=== PATIENT | male | born 1935 | race Hispanic/Latino ===

== ENCOUNTER 2018-05-02 09:16 | Inpatient (IN) | payer OTHER ==
[2018-05-02] MEDS ORDERED: GLUCAGON 1 MG/VIAL IM PRN (10:22)
[2018-05-02] MEDS ORDERED: D50W 25 GM/50 ML SYRINGE IV PRN (10:22)
[2018-05-02] MEDS: INSULIN -REGULAR HUMAN 50 UNIT/0.5 ML ML SQ SCH ×3 (11:41→21:09)
[2018-05-02] MEDS: NA CHLORIDE 0.9% 1,000 ML IV SCH ×2 (11:42→23:30)
[2018-05-02 12:36] LABS: Urine Appearance CLEAR; Urine Bilirubin NEGATIVE (NEG); Urine Blood 1+ (NEG); Urine Color YELLOW; Urine Glucose 3+ (NEG); Urine Protein NEGATIVE (NEG); Urine Specific Gravity >=1.030 (1.005-1.030); Urine Urobilinogen 0.2 mg/dL (0.2-1.0); Urine pH 5.5 (5.0-7.0)
[2018-05-02 12:39] LABS: Urine Microscopic Reflex ORDER UMIC
[2018-05-02 12:45] LABS: Urine Bacteria NONE SEEN /HPF (NONE SEEN); Urine Culture Reflex Order NOT NEEDED; Urine RBC <5 /HPF (NONE SEEN)
[2018-05-02] MEDS ORDERED: INSULIN -REGULAR HUMAN 50 UNIT/0.5 ML ML IV ONE (16:49)
[2018-05-02] MEDS ORDERED: INSULIN -REGULAR HUMAN 50 UNIT/0.5 ML ML SQ SCH (21:00)
--- NOTE | 2018-05-03 00:27 | HP ---
Date of Admission: 05/02/2018 Chief Complaint: Dehydration, hyperglycemia. History Of Present Illness: An 82-year-old male who was brought to the office because of weakness an d tendency to fall. The patient stopped taking all his diabetes medicine. The patient had outpatien t workup. His blood sugar was found to be 700. I spoke to the the night before admission; cerda alfonzo, they did not want to go to emergency room or seek medical help at that point. He was brought to the office on the day of admission, at which point he was admitted. The patient denied any new symp toms. Past Medical History: Positive for type 2 diabetes and hypertension. Past Medical History: As mentioned earlier is type 2 diabetes, chronic renal insufficiency, and oste oarthritis. Family History: Noncontributory. Personal History: The patient has previous history of smoking. Review of Systems: The patient denied any chest pain or shortness of breath. Physical Examination: General: Revealed elderly male, alert for his age, however. HEENT: No evidence of head injury. Neck: Supple. JVD negative. Chest: Clear. Heart: Regular. Abdomen: Soft. Extremities: No edema. Laboratory Data: Please refer to the chart. His blood sugar was over 700. BUN and creatinine eleva zane. Assessment: 1.Dehydration. 2.Severe hyperglycemia. 3.Noncompliance. Plan: IV normal saline as his sodium is low. He will be put on insulin sliding scale. The patient will be having Chem profile repeated tomorrow. LORI/DAVID Voice ID: [id number]
[2018-05-03] MEDS: INSULIN -REGULAR HUMAN 50 UNIT/0.5 ML ML SQ SCH ×4 (09:21→21:12)
[2018-05-03 09:44] LABS: Potassium 4.8 mmol/L (3.5-5.1)
[2018-05-03 10:30] VITALS: BMI 26.6
[2018-05-03 10:52] VITALS: O2SAT 98
[2018-05-03] MEDS: NA CHLORIDE 0.9% 1,000 ML IV SCH (13:29)
[2018-05-03] MEDS ORDERED: GUAIFENESIN/DM 5 ML UCUP PO PRN (21:35)
[2018-05-04] MEDS: NA CHLORIDE 0.9% 1,000 ML IV SCH ×2 (00:25→03:00)
[2018-05-04] MEDS: INSULIN -REGULAR HUMAN 50 UNIT/0.5 ML ML SQ SCH ×2 (08:10→11:43)
--- NOTE | 2018-05-04 09:34 | RAD REPORT ---
EXAM DESCRIPTION: Lady Garcia (2 Views)05/04/2018 6:59 am CLINICAL HISTORY: Cough COMPARISON: 2009 FINDINGS: The lungs appear clear of acute infiltrate. The heart is normal size IMPRESSION: No acute abnormalities displayed
[2018-05-04 12:05] VITALS: BP 131/63; TEMP 98.6
== END 2018-05-04 12:54 | disposition home or self-care (01) | DRG 640 ==
LOC: 4TH 09:51
PROVIDERS: ADMIT Internal Medicine; ATTEND Internal Medicine
DX: E86.0 Dehydration (principal); E11.00 Type 2 diabetes mellitus with hyperosmolarity without nonketotic hyperglycemic-hyperosmolar coma (NKHHC); Z91.128 Patient's intentional underdosing of medication regimen for other reason; I10 Essential (primary) hypertension; Z79.84 Long term (current) use of oral hypoglycemic drugs; M19.90 Unspecified osteoarthritis, unspecified site; Z87.891 Personal history of nicotine dependence
CPT/HCPCS: 36415; 71046; 80048; 81003; 81015; 82947; 82962; 87086; 87088; J7030

== ENCOUNTER 2021-03-19 18:26 | Inpatient (IN) | payer OTHER ==
--- OUTSIDE RECORDS SUMMARY | 2021-03-19 18:28 | XMS REPORT | Continuity of Care Document ---
:1935 Author Organization [facility] t Address [address] [place] [address] Care Team Providers Name Role Phone Unavailable Unavailable Unavailable Problems Condition Condition Condition Status Onset Resolution Last Treating Co mments Source Name Details Category Date Date Treatment Clinician Date Gout Gout Problem Active [place] 4-14 Family 00:00: Practic 00 e Senile Senile Problem Active [facility] purpura Purpura 4-14 Family 00:00: Practic 00 e Arthritis Arthritis Problem Active Ralph dixone 1-15 Family 00:00: Practic 00 e Complicati Complicati Problem Active [place] on due to on Due to 08-09 Fami ly diabetes Diabetes 00:00: Practi c mellitus Mellitus 00 e Hypertensi Hypertensi Problem Active [place] [facility] ve ve 11 Family disorder Disorder 00:00: Practi c 00 e Long-term Long-term Problem Active Ralph bruce current Current 11 Family use of Use of 00:00: Practic insulin Insulin 00 e Allergies, Adverse Reactions, Alerts This patient has no known allergies or adverse reactions. Social History Smoking Status Start Date Stop Date Source Former Smoker [facility] Family P thomas Medications Ordered Filled Start Stop Current Ordering Indication Dosage Frequency Signature Comments Components Source Medication Medication Date Date Medication? Clinician (SIG) Name Name Goran Zimmer No 10unit( Q1D Goran [facility] KwTreva KwikPen s) [facility] Family U-100 U-100 U-100 Practic Insulin 100 Insulin 100 Insulin e unit/mL (3 unit/mL (3 100 mL) mL) unit/mL (3 subcutaneou subcutaneou mL) s Inject 10 s Inject 10 subcutaneo units every units every us Inject day by day by 10 units subcutaneou subcutaneou every day s route. s route. by subcutaneo us route. glimepiride glimepiride No 1 Q1D glimepirid [facility] 2 mg tablet 2 mg tablet e 2 mg Family Take 1 Take 1 tablet Practic tablet tablet Take 1 e every day every day tablet by oral by oral every day route. route. by oral route. losartan 50 losartan 50 No 1 Q1D losartan [place] mg tablet mg tablet 50 mg Fami ly Take 1 Take 1 tablet Practic tablet tablet Take 1 e every day every day tablet by oral by oral every day route. route. by oral route. metformin metformin No 1 Q1D metformin [facility] 500 mg 500 mg 500 mg Family tablet Take tablet Take tablet Practic 1 tablet 1 tablet Take 1 e every day every day tablet by oral by oral every day route. route. by oral route. Vital Signs Vital Name Observation Time Observation Value Comments Source BP Diastolic 2020-11-10 00:00:00 87 mm[Hg] [facility] Height 2020-11-10 00:00:00 64 [in_i] [facility] BMI (Body Mass 2020-11-10 00:00:00 28 kg/m2 [facility] Family Index) Practice BP Systolic 2020-11-10 00:00:00 143 mm[Hg] [facility] Body Weight 2020-11-10 00:00:00 163 [lb_av] [facility] BP Diastolic 2020-08-09 00:00:00 65 mm[Hg] [facility] Height 2020-08-09 00:00:00 64 [in_i] [facility] BMI (Body Mass 2020-08-09 00:00:00 27.8 kg/m2 [facility] Family Index) Practice BP Systolic 2020-08-09 00:00:00 130 mm[Hg] [facility] Body Weight 2020-08-09 00:00:00 162 [lb_av] [facility] Procedures This patient has no known procedures. Plan of Care Planned Activity Planned Date Details Comments Source Instructions [facility] Encounters Start End Encounter Admission Attending Care Care Encounter Source Date/Time Date/Time Type Type Clinicians Facility Department ID 2020-11-10 2020-11-10 [facility] [place] - [id number] [place] [facility] 00:00:00 00:00:00 Fawad Hurley [employer] [employer] ADJUSTER: [id number]ishabh Teran, [email or web address] [address], [facility] [id number] , Ph. 2020-08-09 2020-08-09 [facility] - [id number] [place] 00:00:00 00:00:00 Fawad Hurley [employer] PRESS ADJUSTER: [id number] [facility] - Pract rishabh Teran [email or web address] Suite [facility], [facility] [id number] , Ph. Results This patient has no known results.
[2021-03-19 18:39] LABS: Urine Blood 2+ (Negative); Urine Glucose Negative (Negative); Urine Protein 3+ (Negative); Urine pH 5.5 (5.0-7.0)
[2021-03-19] MEDS ORDERED: ACETAMINOPHEN 500 MG TAB ONE (19:00)
[2021-03-19 19:11] LABS: Absolute Lymphocytes (CBC) 0.6 K/uL (0.7-4.9); Basophils % 0.2 % (0-1.3); Hematocrit 40.1 % (39.6-49.0); MPV 8.1 fL (7.6-11.3); RBC Red Blood Cell Count 4.35 M/uL (4.33-5.43)
[2021-03-19] MEDS ORDERED: D50W 50 ML IV ONE (19:13)
[2021-03-19] MEDS ORDERED: NA CHLORIDE 0.9% 1,000 ML ONE (19:13)
--- NOTE | 2021-03-19 19:22 | EDPHYS ---
Physician Documentation [facility] Name: Sal Horta Age: 85 yrs Sex: Male : 1935 Arrival Date: 03/19/2021 Time: 18:28 Bed 7 Private MD: ED Physician Monico Carey HPI: 03/19 19:06 This 85 yrs old Male presents to ER via EMS with complaints of Shortness Of hunter Breath, Fever. 19:06 The patient has shortness of breath at rest. Onset: The symptoms/episode began/occurred hunter 2 day(s) ago. Duration: The symptoms are continuous, and are steadily getting worse. The patient's shortness of breath is aggravated by nothing, is alleviated by application of supplemental oxygen. Associated signs and symptoms: Pertinent positives: non-productive cough, fever. Severity of symptoms: At their worst the symptoms were mild in the emergency department the symptoms are unchanged. It is unknown whether or not the patient has had similar symptoms in the past. Historical: - Allergies: 18:30 tetanus toxoid, adsorbed; hb - PMHx: 18:30 HTN; hb - Immunization history:: Adult Immunizations up to date, Adult Immunizations. - Social history:: Smoking status: unknown. - Family history:: not pertinent. ROS: 19:06 Eyes: Negative for injury, pain, redness, and discharge, ENT: Negative for injury, hunter pain, and discharge, Neck: Negative for injury, pain, and swelling, Abdomen/GI: Negative for abdominal pain, nausea, vomiting, diarrhea, and constipation, Back: Negative for injury and pain, : Negative for injury, bleeding, discharge, and swelling, MS/Extremity: Negative for injury and deformity, Skin: Negative for injury, rash, and discoloration, Psych: Negative for depression, anxiety, suicide ideation, homicidal ideation, and hallucinations, Allergy/Immunology: Negative for hives, rash, and allergies, Endocrine: Negative for neck swelling, polydipsia, polyuria, polyphagia, and marked weight changes. 19:06 Cardiovascular: Positive for chest pain. 19:06 Respiratory: Positive for cough, shortness of breath, at rest. Exam: 19:06 Head/Face: Normocephalic, atraumatic. Eyes: Pupils equal round and reactive to light, hunter extra-ocular motions intact. Lids and lashes normal. Conjunctiva and sclera are non-icteric and not injected. Cornea within normal limits. Periorbital areas with no swelling, redness, or edema. ENT: Nares patent. No nasal discharge, no septal abnormalities noted. Tympanic membranes are normal and external auditory canals are clear. Oropharynx with no redness, swelling, or masses, exudates, or evidence of obstruction, uvula midline. Mucous membranes moist. Neck: Trachea midline, no thyromegaly or masses palpated, and no cervical lymphadenopathy. Supple, full range of motion without nuchal rigidity, or vertebral point tenderness. No Meningismus. Chest/axilla: Normal chest wall appearance and motion. Nontender with no deformity. No lesions are appreciated. Abdomen/GI: Soft, non-tender, with normal bowel sounds. No distension or tympany. No guarding or rebound. No evidence of tenderness throughout. Back: No spinal tenderness. No costovertebral tenderness. Full range of motion. Male : Normal genitalia with no discharge or lesions. Skin: Warm, dry with normal turgor. Normal color with no rashes, no lesions, and no evidence of cellulitis. MS/ Extremity: Pulses equal, no cyanosis. Neurovascular intact. Full, normal range of motion. Neuro: Awake and alert, GCS 15, oriented to person, place, time, and situation. Cranial nerves II-XII grossly intact. Motor strength 5/5 in all extremities. Sensory grossly intact. Cerebellar exam normal. Normal gait. Psych: Awake, alert, with orientation to person, place and time. Behavior, mood, and affect are within normal limits. 19:06 Constitutional: The patient appears febrile. 19:06 Cardiovascular: Rate: tachycardic, actual rate is 131 bpm, Rhythm: regular, Pulses: Pulses are 4+ in bilateral radial, brachial, femoral, popliteal, posterior tibial and and dorsalis pedis arteries.. Heart sounds: normal, Edema: is not appreciated, JVD: is not appreciated. 19:06 ECG was reviewed by the Attending Physician. Vital Signs: 18:28 BP 145 / 94; Pulse 131; Resp 40; Temp 101; Pulse Ox 93% on 15% Non-rebreather mask; hb Pain 5/10; 18:55 Weight 64.41 kg; Height 5 ft. 4 in. (162.56 cm); hb 20:00 BP 130 / 50; Pulse 96; Resp 26; Temp 99(O); Pulse Ox 92% on 5 lpm NC; Pain 0/10; lp1 21:00 BP 128 / 81; Pulse 89; Resp 28; Pulse Ox 92% on 5 lpm NC; lp1 18:55 Body Mass Index 24.37 (64.41 kg, 162.56 cm) hb MDM: 18:44 Patient medically screened. hunter 19:16 Differential diagnosis: asthma, Bronchitis Chronic Obstructive Pulmonary Disease hunter reactive airway disease, Sepsis. Antibiotic administration: zosyn . The patient's Wells Deep Vein Thrombosis Score was calculated as follows: Total Score: 0-2 Pts- Low Risk. The patient's pulmonary embolism risk score was calculated as follows: Total Score: 0-2 points. This patient was found to be at low risk for a pulmonary embolism by using the Well's assessment criteria. Immunization status: Pneumococcal vaccine: Influenza vaccine: Data reviewed: vital signs, nurses notes, EMS record, EKG, radiologic studies, plain films. Data interpreted: secured entrance monitor: rate is 131 beats/min, rhythm is regular, Pulse oximetry: on room air is 93 %. Test interpretation: by ED physician or midlevel provider: ECG, plain radiologic studies. Counseling: I had a detailed discussion with the patient and/or guardian regarding: the historical points, exam findings, and any diagnostic results supporting the discharge/admit diagnosis, lab results, radiology results, the need for further work-up and treatment in the hospital. 03/19 18:33 Order name: Basic Metabolic Panel hb 03/19 18:33 Order name: CBC with Diff hb 03/19 18:33 Order name: LFT's hb 03/19 18:33 Order name: Magnesium hb 03/19 18:33 Order name: NT PRO-BNP hb 03/19 18:33 Order name: PT-INR hb 03/19 18:33 Order name: Troponin (emerg Dept Use Only) hb 03/19 18:33 Order name: COVID-19 : Document "Date of Symptom Onset" if Symptomatic. hb 03/19 18:33 Order name: Blood Culture Adult (2) hb 03/19 18:33 Order name: Lactate hb 03/19 18:33 Order name: Procalcitonin; Complete Time: 20:22 hb 03/19 18:34 Order name: Basic Metabolic Panel; Complete Time: 08:46 EDMS 03/19 18:34 Order name: CBC with Automated Diff; Complete Time: 19:22 EDMS 03/19 18:34 Order name: Liver (Hepatic) Function; Complete Time: 08:46 EDMS 03/19 18:34 Order name: Magnesium; Complete Time: 08:46 EDMS 03/19 18:34 Order name: NT PRO-BNP; Complete Time: 08:46 EDMS 03/19 18:34 Order name: Protime (+INR); Complete Time: 20:22 EDMS 03/19 18:34 Order name: Troponin (Emerg Dept Use Only); Complete Time: 08:46 EDMS 03/19 18:34 Order name: CRP; Complete Time: 08:46 la1 03/19 18:34 Order name: Ferritin; Complete Time: 08:46 la1 03/19 18:34 Order name: DD; Complete Time: 20:22 la1 03/19 18:38 Order name: Urine Dipstick-Ancillary; Complete Time: 19:05 EDMS 03/19 18:58 Order name: Glucose, Ancillary Testing; Complete Time: 19:05 EDMS 03/19 20:45 Order name: COVID-19/FLU A+B; Complete Time: 20:51 EDMS 03/19 22:55 Order name: Glucose, Ancillary Testing; Complete Time: 08:46 EDMS 03/20 08:06 Order name: Glucose, Ancillary Testing; Complete Time: 08:46 EDMS 03/20 08:16 Order name: Hemoglobin A1c; Complete Time: 08:46 EDMS 03/20 08:25 Order name: D-Dimer; Complete Time: 08:46 EDMS 03/19 18:33 Order name: XRAY Chest (1 view); Complete Time: 20:22 hb 03/19 18:33 Order name: EKG; Complete Time: 18:34 hb 03/19 18:33 Order name: Cardiac monitoring; Complete Time: 18:47 hb 03/19 18:33 Order name: EKG - Nurse/Tech; Complete Time: 18:47 hb 03/19 18:33 Order name: IV Saline Lock; Complete Time: 18:47 hb 03/19 18:33 Order name: Labs collected and sent; Complete Time: 18:47 hb 03/19 18:33 Order name: O2 Per Protocol; Complete Time: 18:47 hb 03/19 18:33 Order name: O2 Sat Monitoring; Complete Time: 18:47 hb 03/19 22:14 Order name: US; Complete Time: 08:46 EDMS 03/20 08:26 Order name: CBC with Automated Diff EDMS 03/20 08:46 Order name: Comprehensive Metabolic Panel; Complete Time: 08:46 EDMS 03/20 08:46 Order name: Uric Acid; Complete Time: 08:46 EDMS 03/20 08:46 Order name: Creatine Phosphokinase; Complete Time: 08:46 EDMS 03/20 08:46 Order name: Lipid Profile; Complete Time: 08:46 EDMS 03/20 08:46 Order name: C-Reactive Protein; Complete Time: 08:46 EDMS 03/20 08:46 Order name: T4 Free; Complete Time: 08:46 EDMS 03/20 08:46 Order name: Magnesium; Complete Time: 08:46 EDMS 03/20 08:46 Order name: Thyroid Stimulating Hormone; Complete Time: 08:46 EDMS 03/20 08:46 Order name: Ferritin; Complete Time: 08:46 EDMS 03/20 10:29 Order name: CBC Smear Scan EDMS 03/20 12:39 Order name: Glucose, Ancillary Testing EDMS 03/20 16:40 Order name: Glucose, Ancillary Testing EDMS EC:06 Rate is 131 beats/min. Rhythm is regular. QRS [place] is Normal. AR interval is normal. hunter QRS interval is normal. QT interval is normal. No Q waves. T waves are Normal. No ST changes noted. Clinical impression: NSR w/ Non-specific ST/T Changes and No evidence of ischemia. Interpreted by me. Reviewed by me. Administered Medications: 18:47 Drug: Tylenol 650 mg Route: PO; hb 20:14 Follow up: Response: Temperature is decreased lp1 18:54 Drug: D50W 50 ml Route: IVP; Site: left antecubital; hb 20:15 Follow up: Response: No adverse reaction lp1 18:55 Drug: NS 0.9% (30 ml/kg) 30 ml/kg Route: IV; Rate: bolus; Site: left antecubital; hb 20:59 Follow up: IV Status: Completed infusion; IV Intake: 1933ml lp1 20:14 Drug: Zosyn (piperacillin-tazobactam) 3.375 grams Route: IVPB; Infused Over: 60 mins; lp1 Site: left forearm; 20:50 Follow up: IV Status: Completed infusion; IV Intake: 100ml lp1 20:14 Drug: Pepcid (famotidine) 20 mg Route: IVP; Site: left forearm; lp1 20:59 Follow up: Response: No adverse reaction lp1 21:15 Drug: SOLU-Medrol (methylPrednisoLONE) 125 mg Route: IVP; Site: left forearm; lp1 22:00 Follow up: Response: No adverse reaction lp1 03/20 00:30 Not Given (See [facility] charting ): D5W 1000 ml IV at 75 ml/hr continuous lp1 Point of Care Testing: Blood Glucose: 03/19 18:47 Blood Glucose: 61 mg/dL; hb Ranges: Critical Glucose Levels:Adult <50 mg/dl or >400 mg/dl <40 mg/dl or >180 mg/dl Disposition Summary: 03/19/21 19:21 Hospitalization Ordered Hospitalization Status: Inpatient Admission hunter Provider: Tiffanie Lee cha Condition: Fair hunter Problem: new hunter Symptoms: have improved hunter Bed/Room Type: Standard hunter Location: Telemetry/MedSurg (Inpatient)(03/20/21 19:03) cg Room Assignment: [facility](03/20/21 19:03) Diagnosis - Fever, unspecified hunter - Hypoglycemia, unspecified hunter - Hypoxemia hunter - Weakness hunter - Acute kidney failure, unspecified - on chronic hunter Forms: - Medication Reconciliation Form hunter - SBAR form hunter Signatures: Dispatcher [employer] EDMS Monico Carey MD MD cha Pena, Laura, RN RN lp1 Kraig Sparks, [facility] Audelia Minor RN RN Katlin Hilario RN RN hb Corrections: (The following items were deleted from the chart) 19:03 18:34 CORONAVIRUS ordered. EDWV EDMS 19:50 19:02 Influenza Screen (A \\T\\ B)+BA.LAB.BRZ ordered. EDWV EDMS 21:39 19:21 Telemetry/MedSurg (Inpatient) [facility] 21:39 19:21 [facility] 03/20 19:03 03/19 21:39 BR ER HOLD [facility] 08/22 19:03 08 21:39 ERHOLD- cg
--- NOTE | 2021-03-19 19:22 | ER ---
Nurse's Notes [facility] [place] [place] Name: Sal Horta Age: 85 yrs Sex: Male : 1935 Arrival Date: 03/19/2021 Time: 18:28 Bed 7 Private MD: Diagnosis: Fever, unspecified;Hypoglycemia, unspecified;Hypoxemia;Weakness;Acute kidney failure, unspecified-on chronic Presentation: 03/19 18:28 Chief complaint: EMS states: SOB, cough, and fever x 3 days. SpO2 72% on RA, T101. NS hb to 22g LAC. Coronavirus screen: Client presents with at least one sign or symptom that may indicate coronavirus-19. Standard/surgical mask placed on the client. Provider contacted for isolation considerations. Ebola Screen: No symptoms or risks identified at this time. Initial Sepsis Screen: Does the patient meet any 2 criteria? Yes Does the patient have a suspected source of infection? No. Patient's initial sepsis screen is negative. Risk Assessment: Do you want to hurt yourself or someone else? Patient reports no desire to harm self or others. Onset of symptoms was March 16, 2021. 18:28 Method Of Arrival: EMS: [facility] hb 18:28 Acuity: CHUCK 2 hb Triage Assessment: 18:30 General: Appears distressed, Behavior is cooperative. Pain: Pain currently is 5 out of hb 10 on a pain scale. EENT: No signs and/or symptoms were reported regarding the EENT system. Neuro: Level of Consciousness is awake, alert, obeys commands, Oriented to person, place, situation. Cardiovascular: Patient's skin is warm and dry. Rhythm is sinus tachycardia. Respiratory: Reports shortness of breath at rest on exertion cough that is productive, Airway is patent Respiratory effort is labored, Respiratory pattern is tachypnea the patient has moderate shortness of breath. GI: No signs and/or symptoms were reported involving the gastrointestinal system. : No signs and/or symptoms were reported regarding the genitourinary system. Derm: Skin is pink, warm \\T\\ dry. Musculoskeletal: No signs and/or symptoms reported regarding the musculoskeletal system. Historical: - Allergies: 18:30 tetanus toxoid, adsorbed; hb - PMHx: 18:30 HTN; hb - Immunization history:: Adult Immunizations up to date, Adult Immunizations. - Social history:: Smoking status: unknown. - Family history:: not pertinent. Screenin:31 Abuse screen: Denies threats or abuse. Denies injuries from another. Nutritional hb screening: No deficits noted. Tuberculosis screening: No symptoms or risk factors identified. Fall Risk Total Willis Fall Scale indicates Low Risk Score (25-44 pts). Fall prevention measures have been instituted. Side Rails Up X 2 Frequent Obs/Assesments occuring As available Patient and Family Educated on Fall Prevention Program and strategies. Assessment: 18:31 General: see triage assessment . hb 20:00 General: Appears in no apparent distress. Behavior is calm, cooperative. Pain: Denies lp1 pain. Neuro: Level of Consciousness is awake, alert, obeys commands, Oriented to person, place, situation. Cardiovascular: Patient's skin is warm and dry. Respiratory: Respiratory effort is even, shallow, Breath sounds are diminished in left posterior lower lobe and right posterior lower lobe. GI: No signs and/or symptoms were reported involving the gastrointestinal system. : No signs and/or symptoms were reported regarding the genitourinary system. EENT: No signs and/or symptoms were reported regarding the EENT system. Derm: Skin is fragile, is thin, Skin is dry, Skin is normal. Musculoskeletal: No deficits noted. 03/20 20:11 Reassessment: Patient and/or family updated on plan of care and expected duration. Pain jb4 level reassessed. Pt admitted to fourth floor report given to receiving nurse on fourth. Pt left ED in hospital bed with O2 per non rebreather, tolerating well. Vital Signs: 08 18:28 BP 145 / 94; Pulse 131; Resp 40; Temp 101; Pulse Ox 93% on 15% Non-rebreather mask; hb Pain 5/10; 18:55 Weight 64.41 kg; Height 5 ft. 4 in. (162.56 cm); hb 20:00 BP 130 / 50; Pulse 96; Resp 26; Temp 99(O); Pulse Ox 92% on 5 lpm NC; Pain 0/10; lp1 21:00 BP 128 / 81; Pulse 89; Resp 28; Pulse Ox 92% on 5 lpm NC; lp1 18:55 Body Mass Index 24.37 (64.41 kg, 162.56 cm) hb ED Course: 18:28 Patient arrived in ED. hb 18:30 Triage completed. hb 18:31 Arm band placed on. hb 18:31 Patient has correct armband on for positive identification. Bed in low position. Call hb light in reach. Side rails up X 1. ekg monitor on. Pulse ox on. NIBP on. 18:31 Maintain EMS IV. Dressing intact. Good blood return noted. Site clean \\T\\ dry. Gauge \\T\\ hb site: 22LAC. 18:44 Monico Carey MD is Attending Physician. hunter 18:56 COVID-19 : Document "Date of Symptom Onset" if Symptomatic. Sent. hb 19:20 Mari Murillo, GIANFRANCO is Primary Nurse. lp1 19:20 Tiffanie Lee MD is Hospitalizing Provider. [facility] 19:57 XRAY Chest (1 view) In Process Unspecified. EDMS 20:00 Inserted saline lock: 20 gauge in left forearm, using aseptic technique. lp1 20:22 No provider procedures requiring assistance completed. Patient admitted, IV remains in lp1 place. Administered Medications: 18:47 Drug: Tylenol 650 mg Route: PO; hb 20:14 Follow up: Response: Temperature is decreased lp1 18:54 Drug: D50W 50 ml Route: IVP; Site: left antecubital; hb 20:15 Follow up: Response: No adverse reaction lp1 18:55 Drug: NS 0.9% (30 ml/kg) 30 ml/kg Route: IV; Rate: bolus; Site: left antecubital; hb 20:59 Follow up: IV Status: Completed infusion; IV Intake: 1933ml lp1 20:14 Drug: Zosyn (piperacillin-tazobactam) 3.375 grams Route: IVPB; Infused Over: 60 mins; lp1 Site: left forearm; 20:50 Follow up: IV Status: Completed infusion; IV Intake: 100ml lp1 20:14 Drug: Pepcid (famotidine) 20 mg Route: IVP; Site: left forearm; lp1 20:59 Follow up: Response: No adverse reaction lp1 21:15 Drug: SOLU-Medrol (methylPrednisoLONE) 125 mg Route: IVP; Site: left forearm; lp1 22:00 Follow up: Response: No adverse reaction lp1 03/20 00:30 [facility] D5W 1000 ml IV at 75 ml/hr continuous lp1 Point of Care Testing: Blood Glucose: 03/19 18:47 Blood Glucose: 61 mg/dL; hb Ranges: Intake: 20:50 IV: 100ml; Total: 100ml. lp1 20:59 IV: 1933ml; Total: 2033ml. lp1 Outcome: 19:21 Decision to Hospitalize by Provider. [facility] 20:23 Condition: stable lp1 20:23 Instructed on the need for admit. 21:20 Admitted to ER Hold. Please see [facility] for further documentation. lp1 03/20 20:12 Patient left the ED. jb4 Signatures: Dispatcher [employer] EDMonico Diaz MD MD cha Pena, Laura, RN RN lp1 Katlin Hilario, GIANFRANCO RN Rashard Majano, GIANFRANCO RN jb4
[2021-03-19 19:37] LABS: Protime INR 1.17
--- NOTE | 2021-03-19 20:06 | RAD REPORT ---
EXAM DESCRIPTION: Lady Single View03/19/2021 7:56 pm CLINICAL HISTORY: cough COMPARISON: 2018 FINDINGS: Moderate bilateral pulmonary opacities The heart is normal size IMPRESSION: Moderate bilateral pulmonary opacities probably pneumonia
[2021-03-19] MEDS ORDERED: FAMOTIDINE 20 MG/2 ML VIAL IV ONE (20:25)
[2021-03-19] MEDS ORDERED: PIPER/TAZO/NS 3.375gm 3.375 GM/100 ML BAG ONE (20:25)
[2021-03-19 20:30] LABS: AST/SGOT 96 U/L (15-37); BUN Blood Urea Nitrogen 42 mg/dL (7-18); Bicarbonate 25 mmol/L (21-32); Glucose Level 78 mg/dL (74-106); Potassium 4.1 mmol/L (3.5-5.1); Sodium Level 144 mmol/L (136-145)
[2021-03-19 20:31] LABS: ALT/SGPT 47 U/L (12-78); Alkaline Phosphatase 59 U/L (45-117); Bilirubin Total 0.5 mg/dL (0.2-1.0)
[2021-03-19 20:32] LABS: Albumin 2.8 g/dL (3.4-5.0); Bilirubin Direct 0.2 mg/dL (0-0.2); C-Reactive Protein > 190.00 mg/L (<3.00); Magnesium 2.2 mg/dL (1.8-2.4); NT PRO-BNP 526 pg/mL (<450); Protein, Total 8.2 g/dL (6.4-8.2); Troponin (Emerg Dept Use Only) 0.02 ng/mL (0.0-0.045)
[2021-03-19 20:45] LABS: SARS-COV-2 RT PCR POSITIVE (NEGATIVE)
--- NOTE | 2021-03-19 20:57 | P.HP ---
Certification for Inpatient Patient admitted to: Inpatient With expected LOS: >2 Midnights Patient will require the following post-hospital care: None Practitioner: I am a practitioner with admitting privileges, knowledge of patient current condition, hospital course, and medical plan of care. Services: Services provided to patient in accordance with Admission requirements found in Title 42 Section 412.3 of the Code of Federal Regulations <Kraig Sparks - Last Filed: 03/19/21 21:32> Patient History Date of Service: 03/19/21 Reason for admission: COVID-19 pneumonia, acute renal failure History of Present Illness: 85-year-old male with history of hypertension, diabetes mellitus type 2, medical noncompliance presents emergency department for shortness of breath and fever. Patient reports shortness breath and fever over the course of the last few days. Patient very poor historian, patient unable to tell me if he is vaccinated or not, not sure if he is ever tested positive for Covid before. Patient noted to be hypoxic to 70% on room air. Further evaluation demonstrates labs significant for D-dimer 821 chloride 112 creatinine 2.09 GFR 30 CRP greater than 190 procalcitonin 0.99 glucose 78 last GFR was 49 in 2018 urinalysis with 3+ protein 2+ blood Covid positive chest x-ray with moderate bilateral pneumonia. Patient informed that he needs to be admitted for hypoxia, COVID-19 pneumonia initially wanted to leave AMA but reluctantly agreed to stay for "1 night". Will admit for further evaluation and management of acute renal failure, COVID-19 pneumonia - Past Medical/Surgical History Diabetic: Yes -: DM -: HTN Past Surgical History: Unable to obtain Psychosocial/ Personal History: Retired lives with family at home - Family History Mother -: Diabetes, Kidney disease - Social History Smoking Status: Never smoker Alcohol use: No CD- Drugs: No Caffeine use: Yes Place of Residence: Home <Kraig Sparks - Last Filed: 03/19/21 21:32> Date of Service: 03/19/21 <Tiffanie Lee - Last Filed: 03/24/21 08:07> Allergies tetanus toxoid, adsorbed Allergy (Intermediate, Verified 07/04/12 12:53) Rash Home Medications: Glimepiride [Amaryl] 2 mg PO DAILY #90 tab 05/04/18 Losartan Potassium [Cozaar] 50 mg PO DAILY #90 tablet 05/04/18 Metformin ER [Glucophage ER] 500 mg PO DAILY 03/20/21 Review of Systems 10-point ROS is otherwise unremarkable General: Fever, Chills, Weakness, Malaise Respiratory: Cough, Dry, Shortness of Breath <Kraig Sparks - Last Filed: 03/19/21 21:32> Physical Examination - Physical Exam General: Alert, In no apparent distress, Oriented x2 HEENT: Atraumatic, PERRLA, Mucous membr. moist/pink, EOMI, Sclerae nonicteric Neck: Supple, 2+ carotid pulse no bruit, No LAD, Without JVD or thyroid abnormality Respiratory: Diminished, Other (Tachypnea, dyspnea) Cardiovascular: Regular rate/rhythm, Normal S1 S2 Gastrointestinal: Normal bowel sounds, No tenderness Musculoskeletal: No tenderness Integumentary: No rashes Neurological: Normal gait, Normal speech, Normal strength at 5/5 x4 extr, Normal tone, Normal affect Lymphatics: No axilla or inguinal lymphadenopathy - Studies Laboratory Data (last 24 hrs) 03/19/21 18:40: PT 13.5 H, INR 1.17 03/19/21 18:40: WBC 8.30, Hgb 13.5 L, Hct 40.1, Plt Count 200 03/19/21 18:40: Sodium 144, Potassium 4.1, BUN 42 H, Creatinine 2.09 H, Glucose 78, Magnesium 2.2, Total Bilirubin 0.5, AST 96 H, ALT 47, Alkaline Phosphatase 59 <Kraig Sparks - Last Filed: 03/19/21 21:32> Assessment and Plan - Plan Assessment: Acute hypoxic respiratory failure secondary to COVID-19 pneumonia Acute kidney injury superimposed on CKD 3 Diabetes mellitus type 2 with hypoglycemia Hypertension Plan: Acute hypoxic respiratory failure secondary to COVID-19 pneumonia: Continue with IV steroids, oral supplements, ivermectin, baricitinib, full anticoagulation with Eliquis 2.5 mg p.o. twice daily given renal function and age, daily room air saturations, respiratory consult, pulmonology consult. Supplemental oxygen as needed. Patient likely with underlying dementia, oriented x2. Discussed case with patient's daughter who confirmed that patient is not in great decision-making capacity, at this time patient is full code, daughter to discuss with rest of family regarding end-of-life wishes including whether patient would like to be placed on ventilator if needed. Acute kidney injury superimposed on CKD 3: Continue with IV fluids D5W given sodium/blood sugar levels, consult nephrology, renal ultrasound. Diabetes mellitus type 2 with hypoglycemia: Continue with D5W, mild sliding scale ACH S Accu-Cheks A1c with morning labs Hypertension: Evaluate medications continue as appropriate. DVT PPX: Eliquis Code status: Full, daughter to discuss with rest of family regarding advanced d irectives including if patient would be okay with being on ventilator or prefers DNI. Discharge Plan: Home Plan to discharge in: Greater than 2 days - Advance Directives Does patient have a Living Will: No Does patient have a Durable POA for Healthcare: No - Code Status/Comfort Care Code Status Assessed: Yes (Full code) Critical Care: No Time Spent Managing Pts Care (In Minutes): 55 <Kraig Sparks - Last Filed: 03/19/21 21:32> - Problems (Diagnosis) (1) Pneumonia due to COVID-19 virus Current Visit: Yes Status: Acute (2) Hypoxemia Current Visit: Yes Status: Acute (3) STEPH (acute kidney injury) Current Visit: Yes Status: Acute <Tiffanie Lee - Last Filed: 03/24/21 08:07> Date of Service: 03/19/21 Subjective Agree with plan of care as mentioned above. Patient is tachypneic and very weak. Will discuss with family regarding code status. Review of Systems 10-point ROS is otherwise unremarkable Physical Examination - Vital Signs Reviewed - Physical Exam General: Alert, In no apparent distress, Oriented x3 Respiratory: Diminished Cardiovascular: Regular rate/rhythm, Normal S1 S2, No murmurs Gastrointestinal: Normal bowel sounds, Soft and benign, Non-distended, No tenderness Musculoskeletal: No clubbing, No swelling, No tenderness Neurological: Sensation intact, Cranial nerves 3-12 intact - Studies Medications List Reviewed: Yes Assessment & Plan - Problems (Diagnosis) (1) Pneumonia due to COVID-19 virus Current Visit: Yes Status: Acute (2) Hypoxemia Current Visit: Yes Status: Acute (3) STEPH (acute kidney injury) Current Visit: Yes Status: Acute - Plan Continue with plan of care as mentioned below: 1. Continue with IV steroids 2. Monitor inflammatory markers 3. Repeat chest x-ray 4. O2 per protocol 5. Nephrology consultation 6. Continue with albuterol inhaler therapy; also supportive care 7. Monitor renal function closely 8. GI and DVT prophylaxis - Advance Directives Does patient have a Living Will: No Does patient have a Durable POA for Healthcare: No <Tiffanie Lee - Last Filed: 03/24/21 08:07>
[2021-03-19 21:09] LABS: Ferritin 3615.7 ng/mL (26-388)
[2021-03-19] MEDS ORDERED: ACETAMINOPHEN 500 MG TAB PO PRN (21:23)
[2021-03-19] MEDS: ASCORBIC ACID 500 MG TABLET PO SCH (21:23)
[2021-03-19] MEDS: METHYLPREDNISOLONE 40 MG INJ IV SCH (21:23)
[2021-03-19] MEDS ORDERED: BENZONATATE 100 MG CAP PO PRN (21:23)
[2021-03-19] MEDS: INSULIN -REGULAR HUMAN 50 UNIT/0.5 ML ML SQ SCH (21:23)
[2021-03-19] MEDS ORDERED: ONDANSETRON 4 MG/2 ML VIAL IV PRN (21:23)
[2021-03-19] MEDS: APIXABAN 5 MG TABLET PO SCH (21:23)
[2021-03-19] MEDS ORDERED: METHYLPREDNISOLONE 125 MG INJ ONE (21:34)
--- NOTE | 2021-03-19 22:13 | RAD REPORT ---
EXAM DESCRIPTION: US - Renal Ultrasound-Complete - 03/19/2021 10:01 pm CLINICAL HISTORY: Acute renal insufficiency COMPARISON: None. FINDINGS: The right kidney measures 10 cm with an increased echotexture. 3.2 centimeter cyst The left kidney measures 9 cm with an increased echotexture. 1.5 centimeters cyst Hydronephrosis is not seen. No gross abnormality of bladder is seen IMPRESSION: Increased renal echotexture consistent with parenchymal disease
[2021-03-19] MEDS ORDERED: APIXABAN 5 MG TABLET ONE (22:47)
[2021-03-19] MEDS ORDERED: ASCORBIC ACID 500 MG TABLET ONE (22:47)
[2021-03-19 23:44] VITALS: BMI 26.4
[2021-03-20] MEDS ORDERED: D5W 1,000 ML IV ONE ×2 (00:28→08:31)
[2021-03-20] MEDS: D5W 1,000 ML IV SCH ×2 (00:32→20:59)
[2021-03-20] MEDS ORDERED: ENOXAPARIN 60 MG/0.6 ML SQ ONE (00:35)
[2021-03-20] MEDS ORDERED: [UNRECOGNIZED DRUG - REMARK] XX ONE (07:00)
[2021-03-20 07:59] LABS: Absolute Lymphocytes (CBC) 0.3 K/uL (0.7-4.9); Basophils % 0.1 % (0-1.3); Hematocrit 40.7 % (39.6-49.0); Lymphocytes % 2.6 % (15.3-44.8); RBC Red Blood Cell Count 4.31 M/uL (4.33-5.43)
[2021-03-20] MEDS ORDERED: METHYLPREDNISOLONE 125 MG INJ ONE (08:29)
[2021-03-20] MEDS ORDERED: ZINC SULFATE 220 MG CAP ONE (08:29)
[2021-03-20] MEDS ORDERED: ASCORBIC ACID 500 MG TABLET ONE ×3 (08:29→17:07)
[2021-03-20] MEDS ORDERED: THIAMINE HCL 100 MG TABLET ONE (08:29)
[2021-03-20] MEDS ORDERED: APIXABAN 5 MG TABLET ONE (08:29)
[2021-03-20] MEDS ORDERED: VITAMIN D 1000 UNIT TAB ONE (08:30)
[2021-03-20] MEDS: INSULIN -REGULAR HUMAN 50 UNIT/0.5 ML ML SQ SCH ×4 (08:40→22:29)
[2021-03-20] MEDS: IVERMECTIN 3 MG TABLET PO SCH (08:40)
[2021-03-20 08:46] LABS: Albumin 2.3 g/dL (3.4-5.0); Bilirubin Total 0.5 mg/dL (0.2-1.0); Magnesium 2.1 mg/dL (1.8-2.4); Potassium 4.3 mmol/L (3.5-5.1); Protein, Total 7.6 g/dL (6.4-8.2); Thyroid Stimulating Hormone 0.196 uIU/mL (0.360-3.740)
[2021-03-20] MEDS: ASCORBIC ACID 500 MG TABLET PO SCH ×4 (09:00→21:00)
[2021-03-20] MEDS ORDERED: INSULIN -REGULAR HUMAN 50 UNIT/0.5 ML ML ONE ×2 (09:00→17:08)
[2021-03-20] MEDS: THIAMINE HCL 100 MG TABLET PO SCH (09:00)
[2021-03-20] MEDS: METHYLPREDNISOLONE 40 MG INJ IV SCH ×2 (09:00→21:00)
[2021-03-20] MEDS: ZINC SULFATE 220 MG CAP PO SCH (09:00)
[2021-03-20] MEDS: APIXABAN 5 MG TABLET PO SCH ×2 (09:00→21:00)
[2021-03-20] MEDS: VITAMIN D 1000 UNIT TAB PO SCH (09:00)
[2021-03-20 10:29] LABS: Blood Morphology Comment NOT SEEN (NOT SEEN); Platelet Estimate ADEQ; White Blood Cell Scan OK (OK)
--- NOTE | 2021-03-20 10:41 | EKG ---
Test Date: 2021-03-19 Test Time: 18:28:58 Welder Plasma Arc: BOUBACAR MEASUREMENT RESULTS: Intervals: Rate: 131 NH: 178 QRSD: 72 QT: 292 QTc: 431 [place]: P: 64 NH: 178 QRS: -6 T: 63 INTERPRETIVE STATEMENTS: Sinus tachycardia with premature supraventricular complexes and fusion complexes Right atrial enlargement Low voltage QRS Possible Inferior infarct, age undetermined Abnormal ECG Compared to ECG 07/16/2009 11:25:44 Atrial premature complex(es) now present Fusion complex(es) now present Atrial abnormality now present Low QRS voltage now present Myocardial infarct finding now present Sinus rhythm no longer present Electronically Signed On 03-20-21 10:39:48 CDT by Trevor Yun
[2021-03-20] MEDS: MELATONIN 5 MG TABLET PO PRN (21:00)
[2021-03-20] MEDS ORDERED: LORazepam 2 MG/ML VIAL IV ONE (21:46)
[2021-03-21] MEDS: D5W 1,000 ML IV SCH ×2 (00:03→16:39)
[2021-03-21] MEDS ORDERED: METOPROLOL TARTRATE 5 MG/5 ML INJ IV STA (02:57)
[2021-03-21] MEDS ORDERED: METOPROLOL TARTRATE 5 MG/5 ML INJ IV ONE (03:14)
[2021-03-21 06:56] LABS: Absolute Lymphocytes (CBC) 0.5 K/uL (0.7-4.9); Basophils % 0.3 % (0-1.3); Lymphocytes % 2.8 % (15.3-44.8); MPV 8.5 fL (7.6-11.3); RBC Red Blood Cell Count 4.37 M/uL (4.33-5.43)
[2021-03-21 07:26] LABS: Albumin 2.3 g/dL (3.4-5.0); Bilirubin Total 0.4 mg/dL (0.2-1.0); Ferritin 3900.7 ng/mL (26-388); Magnesium 2.1 mg/dL (1.8-2.4); Potassium 3.9 mmol/L (3.5-5.1); Protein, Total 7.7 g/dL (6.4-8.2)
[2021-03-21] MEDS: THIAMINE HCL 100 MG TABLET PO SCH (07:41)
[2021-03-21] MEDS: VITAMIN D 1000 UNIT TAB PO SCH (07:41)
[2021-03-21] MEDS: ZINC SULFATE 220 MG CAP PO SCH (07:42)
[2021-03-21] MEDS: ASCORBIC ACID 500 MG TABLET PO SCH ×4 (07:42→19:52)
[2021-03-21] MEDS: APIXABAN 5 MG TABLET PO SCH (07:42)
[2021-03-21] MEDS: INSULIN -REGULAR HUMAN 50 UNIT/0.5 ML ML SQ SCH ×4 (07:43→21:00)
[2021-03-21 08:04] LABS: Blood Morphology Comment NOT SEEN (NOT SEEN); Platelet Estimate ADEQ
[2021-03-21] MEDS: APIXABAN 2.5 MG TABLET PO SCH ×2 (08:52→19:51)
[2021-03-21] MEDS: BARICITINIB 2 MG TABLET PO SCH (09:30)
[2021-03-21] MEDS: METHYLPREDNISOLONE 40 MG INJ IV SCH ×2 (09:46→19:51)
--- NOTE | 2021-03-21 10:51 | P.PN ---
Subjective Date of Service: 03/20/21 Patient clinical symptoms are improving. Still on 15L oxygen. Symptoms remain stable. Review of Systems 10-point ROS is otherwise unremarkable Physical Examination - Vital Signs Temperature: 97.6 F Blood Pressure: 132/74 Pulse: 96 Respirations: 19 Pulse Ox (%): 93 - Physical Exam General: Alert, In no apparent distress, Oriented x3 Respiratory: Diminished Cardiovascular: Regular rate/rhythm, Normal S1 S2, No murmurs Gastrointestinal: Normal bowel sounds, Soft and benign, Non-distended, No tenderness Musculoskeletal: No clubbing, No swelling, No tenderness Neurological: Sensation intact, Cranial nerves 3-12 intact - Studies Medications List Reviewed: Yes Assessment & Plan - Problems (Diagnosis) (1) Pneumonia due to COVID-19 virus Current Visit: Yes Status: Acute (2) Hypoxemia Current Visit: Yes Status: Acute (3) STEPH (acute kidney injury) Current Visit: Yes Status: Acute - Plan 1. Continue with IV steroids 2. Monitor inflammatory markers 3. Repeat chest x-ray 4. O2 per protocol 5. Nephrology consultation 6. Continue with albuterol inhaler therapy; also supportive care 7. Monitor renal function closely 8. GI and DVT prophylaxis - Advance Directives Does patient have a Living Will: No Does patient have a Durable POA for Healthcare: No
[2021-03-21] MEDS: GLIMEPIRIDE 2 MG TABLET PO SCH (16:35)
--- NOTE | 2021-03-21 16:36 | P.CNS ---
Date of Consult: 03/21/21 Reason for Consult: Respiratory failure from hansen virus pneumonia Chief Complaint: COVID-19 pneumonia, acute renal failure History of Present Illness: Patient is 85 years of age metabolic syndrome admitted with shortness of breath and fever diagnosed with severe hansen virus pneumonia he continues to remain hypoxic despite on high concentrations of oxygen confused and agitated Allergies tetanus toxoid, adsorbed Allergy (Intermediate, Verified 07/04/12 12:53) Rash Home Medications: Glimepiride [Amaryl] 2 mg PO DAILY #90 tab 05/04/18 Losartan Potassium [Cozaar] 50 mg PO DAILY #90 tablet 05/04/18 Metformin ER [Glucophage ER] 500 mg PO DAILY 03/20/21 - Past Medical/Surgical History Diabetic: Yes -: DM -: HTN -: Alzheimer's Psychosocial/ Personal History: Retired lives with family at home - Family History Mother Medical History: Diabetes, Kidney disease - Social History Smoking Status: Unknown if ever smoked Alcohol use: No CD- Drugs: No Caffeine use: Yes Place of Residence: Home Review of Systems is unable to be obtained Physical Examination Temp Pulse Resp BP Pulse Ox 98.1 F 98 H 23 H 132/81 87 L 03/21/21 12:00 03/21/21 12:00 03/21/21 12:00 03/21/21 12:00 03/21/21 12:00 General: Delirious Respiratory: Clear to auscultation bilaterally, Diminished Cardiovascular: No edema, Normal S1 S2 - Problems (1) Pneumonia due to COVID-19 virus Current Visit: Yes Status: Acute Plan: Patient is 85 years of age admitted with severe hansen virus pneumonia agree with present therapy patient is on ivermectin.barcitnib and steroids in addition to D5 water labs chest x-ray all reviewed
[2021-03-21] MEDS: MELATONIN 5 MG TABLET PO PRN (19:52)
[2021-03-21] MEDS ORDERED: LORazepam 2 MG/ML VIAL IV ONE (20:42)
[2021-03-21] MEDS ORDERED: LORazepam 2 MG/ML VIAL ONE (21:17)
--- NOTE | 2021-03-21 23:16 | P.CNS ---
Date of Consult: 03/20/21 Chief Complaint: COVID-19 pneumonia, acute renal failure History of Present Illness: Pt is an 85 y/o male with past medical hx of hypertension, presented with complaints of shortness of breath and fever. Pt noted to be hypoxic on evaluation in the ED. Pt found to be positive for covid and was started on oxygen supplementation and supportive care for covid now maintained on NRB mask. Pt noted to have an elevated creatinine of 2.0 slowly improving. Renal has been consulted. Pt denies any nsaid use, recent antibiotic usage, contrast exposure. Allergies tetanus toxoid, adsorbed Allergy (Intermediate, Verified 07/04/12 12:53) Rash Home Medications: Glimepiride [Amaryl] 2 mg PO DAILY #90 tab 05/04/18 Losartan Potassium [Cozaar] 50 mg PO DAILY #90 tablet 05/04/18 Metformin ER [Glucophage ER] 500 mg PO DAILY 03/20/21 - Past Medical/Surgical History Diabetic: Yes -: DM -: HTN -: Alzheimer's Psychosocial/ Personal History: Retired lives with family at home - Family History Mother Medical History: Diabetes, Kidney disease - Social History Smoking Status: Unknown if ever smoked Alcohol use: No CD- Drugs: No Caffeine use: Yes Place of Residence: Home Physical Examination Temp Pulse Resp BP Pulse Ox 97.9 F 123 H 18 174/79 H 84 L 03/21/21 20:00 03/21/21 20:00 03/21/21 20:00 03/21/21 20:00 03/21/21 20:00 General: Alert, In no apparent distress HEENT: Atraumatic, PERRLA, Mucous membr. 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 Continue to monitor recovery Avoid nephrotoxins which include acei, arbs, Maintained on NRB mask Renally dose EGFR. Will continue to follow.
[2021-03-22] MEDS ORDERED: HALOPERIDOL LACT 5 MG/ML INJ IV ONE
[2021-03-22] MEDS ORDERED: HALOPERIDOL LACT 5 MG/ML INJ ONE (00:03)
[2021-03-22] MEDS ORDERED: FENTANYL CITR 100 MCG/2 ML IV ONE (01:10)
[2021-03-22] MEDS ORDERED: FENTANYL CITR 100 MCG/2 ML ONE (01:37)
[2021-03-22] MEDS: D5W 1,000 ML IV SCH ×2 (02:31→14:05)
[2021-03-22] MEDS: FENTANYL CITR 100 MCG/2 ML IV PRN ×4 (05:09→19:05)
[2021-03-22 06:22] LABS: Absolute Lymphocytes (CBC) 0.2 K/uL (0.7-4.9); Lymphocytes % 2.7 % (15.3-44.8); MPV 8.4 fL (7.6-11.3)
[2021-03-22 07:01] LABS: Bilirubin Total 0.4 mg/dL (0.2-1.0); Ferritin 3271.7 ng/mL (26-388); Magnesium 2.2 mg/dL (1.8-2.4); Potassium 3.7 mmol/L (3.5-5.1); Protein, Total 6.5 g/dL (6.4-8.2)
[2021-03-22] MEDS: METHYLPREDNISOLONE 40 MG INJ IV SCH ×2 (07:46→19:37)
[2021-03-22] MEDS: THIAMINE HCL 100 MG TABLET PO SCH (07:46)
[2021-03-22] MEDS: VITAMIN D 1000 UNIT TAB PO SCH (07:47)
[2021-03-22] MEDS: APIXABAN 2.5 MG TABLET PO SCH ×2 (07:47→19:37)
--- NOTE | 2021-03-22 07:48 | RAD REPORT ---
EXAM DESCRIPTION: Lady Single View03/22/2021 6:26 am CLINICAL HISTORY: Shortness of breath COMPARISON: March 19 FINDINGS: Overall no significant change diffuse bilateral pulmonary opacities. Heart is mildly enlar ged IMPRESSION: No significant change in the diffuse bilateral pulmonary opacities probably pneumonia
[2021-03-22] MEDS: ASCORBIC ACID 500 MG TABLET PO SCH ×4 (07:49→19:37)
[2021-03-22] MEDS: ZINC SULFATE 220 MG CAP PO SCH (07:49)
[2021-03-22] MEDS: INSULIN -REGULAR HUMAN 50 UNIT/0.5 ML ML SQ SCH ×4 (07:50→19:54)
[2021-03-22] MEDS: IVERMECTIN 3 MG TABLET PO SCH (08:00)
[2021-03-22] MEDS: BARICITINIB 2 MG TABLET PO SCH (09:14)
--- NOTE | 2021-03-22 12:57 | P.PN ---
Date of Service: 03/21/21 Subjective Patient still having some respiratory distress. Patient very tachypneic. Patient remains on high-flow oxygen. Looks to be worsening. May need to proceed with BiPAP or mechanical ventilation. Review of Systems 10-point ROS is otherwise unremarkable Physical Examination - Vital Signs reviewed - Physical Exam General: Alert, In no apparent distress, Oriented x2-3 Respiratory: Diminished Cardiovascular: Regular rate/rhythm, Normal S1 S2, No murmurs Gastrointestinal: Normal bowel sounds, Soft and benign, Non-distended, No tenderness Musculoskeletal: No clubbing, No swelling, No tenderness Neurological: Sensation intact, Cranial nerves 3-12 intact Assessment & Plan - Problems (Diagnosis) (1) Pneumonia due to COVID-19 virus Current Visit: Yes Status: Acute (2) Hypoxemia Current Visit: Yes Status: Acute (3) STEPH (acute kidney injury) Current Visit: Yes Status: Acute - Plan Continue with current POC: 1. Continue with IV steroids 2. Monitor inflammatory markers 3. Repeat chest x-ray 4. May need to place on BiPAP. 5. Continue monitoring renal function; nephrology consultation appreciated 6. Continue with albuterol inhaler therapy; also supportive care 7. Discuss with family regarding plan of care 8. GI and DVT prophylaxis
[2021-03-22] MEDS: GLIMEPIRIDE 2 MG TABLET PO SCH (16:01)
--- NOTE | 2021-03-22 18:19 | P.PN ---
Subjective Date of Service: 03/22/21 Chief Complaint: COVID-19 pneumonia, acute renal failure Pt seen and examined. Very short of breath. Physical Examination - Vital Signs Temperature: 97.2 F Blood Pressure: 128/82 Pulse: 103 Respirations: 35 Pulse Ox (%): 95 - Physical Exam General: Moderate distress HEENT: Atraumatic, PERRLA, EOMI Neck: Supple, JVD not distended Respiratory: Diminished Cardiovascular: Regular rate/rhythm, Normal S1 S2 Gastrointestinal: Normal bowel sounds, No tenderness Integumentary: No rashes Neurological: Normal speech, Normal tone, Normal affect - Studies Laboratory Last Values WBC 8.30 K/uL (4.3-10.9) 03/19/21 18:40 RBC 4.35 M/uL (4.33-5.43) 03/19/21 18:40 Hgb 13.5 g/dL (13.6-17.9) L 03/19/21 18:40 Hct 40.1 % (39.6-49.0) 03/19/21 18:40 MCV 92.3 fL (80-100) 03/19/21 18:40 MCH 31.1 pg (27.0-35.0) 03/19/21 18:40 MCHC 33.7 g/dL (32.0-36.0) 03/19/21 18:40 RDW 13.8 % (12.1-15.2) 03/19/21 18:40 Plt Count 200 K/uL (152-406) 03/19/21 18:40 MPV 8.1 fL (7.6-11.3) 03/19/21 18:40 Neutrophils % 87.2 % (41.7-73.7) H 03/19/21 18:40 Lymphocytes % 7.0 % (15.3-44.8) L 03/19/21 18:40 Monocytes % 5.6 % (3.3-12.3) 03/19/21 18:40 Eosinophils % 0.0 % (0-4.4) 03/19/21 18:40 Basophils % 0.2 % (0-1.3) 03/19/21 18:40 Absolute Neutrophils 7.2 K/uL (1.8-8.0) 03/19/21 18:40 Absolute Lymphocytes 0.6 K/uL (0.7-4.9) L 03/19/21 18:40 Absolute Monocytes 0.5 K/uL (0.1-1.3) 03/19/21 18:40 Absolute Eosinophils 0.0 K/uL (0-0.5) 03/19/21 18:40 Absolute Basophils 0.0 K/uL (0-0.5) 03/19/21 18:40 PT 13.5 SECONDS (9.5-12.5) H 03/19/21 18:40 INR 1.17 03/19/21 18:40 D-Dimer 821 FEUng/mL (<500) H* 03/19/21 18:40 Sodium 144 mmol/L (136-145) 03/19/21 18:40 Potassium 4.1 mmol/L (3.5-5.1) 03/19/21 18:40 Chloride 112 mmol/L (98-107) H 03/19/21 18:40 Carbon Dioxide 25 mmol/L (21-32) 03/19/21 18:40 BUN 42 mg/dL (7-18) H 03/19/21 18:40 Creatinine 2.09 mg/dL (0.55-1.3) H 03/19/21 18:40 Estimated GFR 30 mL/min (=/>90) L 03/19/21 18:40 Glucose 78 mg/dL (74-106) 03/19/21 18:40 POC Glucose 61 mg/dL (65-120) L 03/19/21 18:46 Lactic Acid Cancelled 03/19/21 18:48 Calcium 9.0 mg/dL (8.5-10.1) 03/19/21 18:40 Magnesium 2.2 mg/dL (1.8-2.4) 03/19/21 18:40 Ferritin 3615.7 ng/mL (26-388) H 03/19/21 18:40 Total Bilirubin 0.5 mg/dL (0.2-1.0) 03/19/21 18:40 Direct Bilirubin 0.2 mg/dL (0-0.2) 03/19/21 18:40 AST 96 U/L (15-37) H 03/19/21 18:40 ALT 47 U/L (12-78) 03/19/21 18:40 Alkaline Phosphatase 59 U/L (45-117) 03/19/21 18:40 Rapid Troponin I 0.02 ng/mL (0.0-0.045) 03/19/21 18:40 C-Reactive Protein > 190.00 mg/L (<3.00) H 03/19/21 18:40 NT-Pro-B Natriuret Pep 526 pg/mL (<450) H 03/19/21 18:40 Serum Total Protein 8.2 g/dL (6.4-8.2) 03/19/21 18:40 Albumin 2.8 g/dL (3.4-5.0) L 03/19/21 18:40 Globulin 5.4 g/dL (2.3-3.5) H 03/19/21 18:40 Albumin/Globulin Ratio 0.5 (1.1-1.8) L 03/19/21 18:40 Procalcitonin 0.99 ng/mL (<0.050) H 03/19/21 18:40 Urine pH 5.5 (5.0-7.0) 03/19/21 18:36 Ur Specific [place] 1.020 (1.005-1.030) 03/19/21 18:36 Glucose (UA)(Auto) Negative (Negative) 03/19/21 18:36 Urine Ketones Negative (Negative) 03/19/21 18:36 Urine Blood 2+ (Negative) H 03/19/21 18:36 Urine Nitrite Negative (Negative) 03/19/21 18:36 Ur Leukocyte Esterase Negative (Negative) 03/19/21 18:36 Urine Total Protein 3+ (Negative) H 03/19/21 18:36 Influenza Type A RNA Negative (NEGATIVE) 03/19/21 18:38 Influenza Type B RNA Negative (NEGATIVE) 03/19/21 18:38 SARS-CoV-2 RNA (RT-PCR) Positive (NEGATIVE) A 03/19/21 18:38 SARS-CoV-2 Rap RNA(RT-PCR) Cancelled 03/19/21 18:38 Medications List Reviewed: Yes Assessment & Plan Physician Review Additional Text: Problems COVID 19 PNA 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 Continue to monitor recovery Avoid nephrotoxins which include acei, arbs, Maintained on NRB mask Renally dose EGFR. Will continue to follow.
[2021-03-22] MEDS: MELATONIN 5 MG TABLET PO PRN (19:37)
[2021-03-22] MEDS ORDERED: LORazepam 2 MG/ML VIAL IV ONE ×3 (21:15→21:55)
[2021-03-22] MEDS ORDERED: LORazepam 2 MG/ML VIAL ONE ×2 (21:34→22:19)
[2021-03-23] MEDS: FENTANYL CITR 100 MCG/2 ML IV PRN ×3 (02:15→12:55)
[2021-03-23] MEDS ORDERED: LORazepam 2 MG/ML VIAL IV ONE ×3 (04:25→19:37)
[2021-03-23] MEDS: D5W 1,000 ML IV SCH ×3 (05:23→17:10)
[2021-03-23 05:58] LABS: Absolute Lymphocytes (CBC) 0.2 K/uL (0.7-4.9); Basophils % 0.1 % (0-1.3); Hematocrit 35.7 % (39.6-49.0); Lymphocytes % 1.9 % (15.3-44.8); MPV 8.7 fL (7.6-11.3); RBC Red Blood Cell Count 3.87 M/uL (4.33-5.43)
[2021-03-23 06:28] LABS: Albumin 2.1 g/dL (3.4-5.0); Bilirubin Total 0.6 mg/dL (0.2-1.0); C-Reactive Protein 58.8 mg/L (<3.00); Ferritin 2462.3 ng/mL (26-388); Magnesium 2.3 mg/dL (1.8-2.4); Potassium 3.9 mmol/L (3.5-5.1); Protein, Total 6.4 g/dL (6.4-8.2)
[2021-03-23] MEDS: VITAMIN D 1000 UNIT TAB PO SCH (09:00)
[2021-03-23] MEDS: APIXABAN 2.5 MG TABLET PO SCH (09:00)
[2021-03-23] MEDS: ZINC SULFATE 220 MG CAP PO SCH (09:00)
[2021-03-23] MEDS: ASCORBIC ACID 500 MG TABLET PO SCH ×4 (09:00→19:56)
[2021-03-23] MEDS: BARICITINIB 2 MG TABLET PO SCH (09:00)
[2021-03-23] MEDS: THIAMINE HCL 100 MG TABLET PO SCH (09:00)
[2021-03-23] MEDS: METHYLPREDNISOLONE 40 MG INJ IV SCH ×2 (09:58→19:50)
[2021-03-23] MEDS: INSULIN -REGULAR HUMAN 50 UNIT/0.5 ML ML SQ SCH ×4 (09:58→19:28)
[2021-03-23] MEDS: METOPROLOL TARTRATE 5 MG/5 ML INJ IV PRN (14:50)
[2021-03-23] MEDS: GLIMEPIRIDE 2 MG TABLET PO SCH (16:54)
[2021-03-23] MEDS: APIXABAN 5 MG TABLET PO SCH (19:56)
[2021-03-23] MEDS: LORazepam 2 MG/ML VIAL IV PRN (22:56)
[2021-03-24] MEDS: METOPROLOL TARTRATE 5 MG/5 ML INJ IV PRN ×2 (00:14→23:50)
[2021-03-24] MEDS: LORazepam 2 MG/ML VIAL IV PRN (03:07)
[2021-03-24 05:38] LABS: Absolute Lymphocytes (CBC) 0.2 K/uL (0.7-4.9); Basophils % 0.3 % (0-1.3); Hematocrit 37.8 % (39.6-49.0); Lymphocytes % 1.5 % (15.3-44.8); MPV 8.3 fL (7.6-11.3); RBC Red Blood Cell Count 4.15 M/uL (4.33-5.43)
[2021-03-24 05:59] LABS: Albumin 2.3 g/dL (3.4-5.0); Bilirubin Total 0.8 mg/dL (0.2-1.0); C-Reactive Protein 78.4 mg/L (<3.00); Ferritin 1989.4 ng/mL (26-388); Magnesium 2.4 mg/dL (1.8-2.4); Potassium 4.4 mmol/L (3.5-5.1); Protein, Total 7.1 g/dL (6.4-8.2)
[2021-03-24] MEDS: INSULIN -REGULAR HUMAN 50 UNIT/0.5 ML ML SQ SCH ×4 (07:30→21:00)
--- NOTE | 2021-03-24 08:11 | P.PN ---
Date of Service: 03/22/21 Subjective Spoke with multiple family members. Decision was to proceed with do not attempt resuscitation. Patient's prognosis is poor. Remains on BiPAP support at an FiO2 of 100%. Barely maintaining his oxygen saturations in the low 90s. He appears to be tachypneic. If no improvement over the next 48-72 hr then may discuss with family regarding hospice. He does appear to be struggling for his breath at times Review of Systems 10-point ROS is otherwise unremarkable Physical Examination - Vital Signs reviewed - Physical Exam General: Alert, In no apparent distress, Oriented x2-3 Respiratory: Diminished Cardiovascular: Regular rate/rhythm, Normal S1 S2, No murmurs Gastrointestinal: Normal bowel sounds, Soft and benign, Non-distended, No tenderness Musculoskeletal: No clubbing, No swelling, No tenderness Neurological: Sensation intact, Cranial nerves 3-12 intact Assessment & Plan - Problems (Diagnosis) (1) Pneumonia due to COVID-19 virus Current Visit: Yes Status: Acute (2) Hypoxemia Current Visit: Yes Status: Acute (3) STEPH (acute kidney injury) Current Visit: Yes Status: Acute - Plan Continue with current POC: 1. Continue with IV steroids; monitor inflammatory markers. 2. continue monitoring hydration status. Monitor renal function. Hold diabetic meds. 3. Repeat chest x-ray 4. Continue on BiPAP support. On FiO2 of 100%. 5. Continue monitoring renal function; nephrology consultation appreciated 6. Continue with albuterol inhaler therapy; also supportive care 7. After discussions with numerous family members they have decided that they were going to proceed with do not attempt resuscitation. 8. GI and DVT prophylaxis
[2021-03-24] MEDS: METHYLPREDNISOLONE 40 MG INJ IV SCH ×2 (08:46→21:01)
--- NOTE | 2021-03-24 08:46 | ECHO ---
HEIGHT: 5 ft 4 in WEIGHT: 154 lb 1.65 oz DATE OF STUDY: 03/23/[address]: Tiffanie Lee MD 2-DIMENSIONAL: YES M.MODE: YES DOPPLER: YES COLOR FLOW: YES TDS: YES PORTABLE: DEFINITY: BUBBLE STUDY: DIAGNOSIS: ATRIAL FIBRILLATION CARDIAC HISTORY: CATHERIZATION: SURGERY: PROSTHETIC VALVE: PACEMAKER: MEASUREMENTS (cm) DIASTOLIC (NORMALS) SYSTOLIC (NORMALS) IVSd 1.0 (0.6-1.2) LA Diam (1.9-4.0) LVEF 78% LVIDd 3.8 (3.5-5.7) LVIDs 2.1 (2.0-3.5) %FS 46% LVPWd 1.1 (0.6-1.2) Ao Diam 2.6 (2.0-3.7) 2 DIMENSIONAL ASSESSMENT: RIGHT ATRIUM: LEFT ATRIUM: RIGHT VENTRICLE: LEFT VENTRICLE: TRICUSPID VALVE: MITRAL VALVE: PULMONIC VALVE: AORTIC VALVE: PERICARDIAL EFFUSION: AORTIC ROOT: LEFT VENTRICULAR WALL MOTION: DOPPLER/COLOR FLOW: COMMENTS: NORMAL 2-DIMENSIONAL ECHOCARDIOGRAM WITH DOPPLER. TECHNOLOGIST: MK HANDLEY
[2021-03-24] MEDS: BARICITINIB 2 MG TABLET PO SCH (09:00)
[2021-03-24] MEDS: ZINC SULFATE 220 MG CAP PO SCH (09:00)
[2021-03-24] MEDS: ASCORBIC ACID 500 MG TABLET PO SCH ×4 (09:00→21:00)
[2021-03-24] MEDS: APIXABAN 5 MG TABLET PO SCH ×2 (09:00→20:53)
[2021-03-24] MEDS: THIAMINE HCL 100 MG TABLET PO SCH (09:00)
[2021-03-24] MEDS: VITAMIN D 1000 UNIT TAB PO SCH (09:00)
[2021-03-24] MEDS ORDERED: METHYLPREDNISOLONE 40 MG INJ IV ONE (13:00)
[2021-03-24] MEDS: GLIMEPIRIDE 2 MG TABLET PO SCH (16:46)
[2021-03-25] MEDS: INSULIN -REGULAR HUMAN 50 UNIT/0.5 ML ML SQ SCH ×4 (07:30→21:49)
[2021-03-25] MEDS: BARICITINIB 2 MG TABLET PO SCH (09:00)
[2021-03-25] MEDS: ZINC SULFATE 220 MG CAP PO SCH (09:00)
[2021-03-25] MEDS: VITAMIN D 1000 UNIT TAB PO SCH (09:00)
[2021-03-25] MEDS: ASCORBIC ACID 500 MG TABLET PO SCH ×4 (09:00→21:00)
[2021-03-25] MEDS: THIAMINE HCL 100 MG TABLET PO SCH (09:00)
[2021-03-25] MEDS: APIXABAN 5 MG TABLET PO SCH ×2 (09:00→21:00)
[2021-03-25] MEDS: METHYLPREDNISOLONE 40 MG INJ IV SCH ×2 (10:16→21:49)
--- NOTE | 2021-03-25 15:46 | P.PN ---
Subjective Date of Service: 03/25/21 Chief Complaint: COVID-19 pneumonia, acute renal failure Patient is not doing well not eating worse Review of Systems is unable to be obtained Physical Examination - Vital Signs Temperature: 98.2 F Blood Pressure: 162/82 Pulse: 117 Respirations: 51 Pulse Ox (%): 91 - Physical Exam General: Unresponsive - Studies Microbiology Data (last 24 hrs): 03/19/21 18:30 Blood - Blood Aerobic Blood Culture - Final No growth in 5 days. 03/19/21 18:30 Blood - Blood Anaerobic Blood Culture - Final No growth in 5 days. 03/19/21 18:48 Blood - Blood Aerobic Blood Culture - Final No growth in 5 days. 03/19/21 18:48 Blood - Blood Anaerobic Blood Culture - Final No growth in 5 days. Medications List Reviewed: Yes Assessment & Plan - Problems (Diagnosis) (1) Pneumonia due to COVID-19 virus Current Visit: Yes Status: Acute Plan: Patient's condition has deteriorated he is currently unresponsive and now DNR not eating and drinking on BiPAP renal failure on IV steroids currently on 100% FiO2 unlikely to survive agree with hospice arrangements
[2021-03-25] MEDS: GLIMEPIRIDE 2 MG TABLET PO SCH (17:00)
[2021-03-25 18:45] LABS: Potassium 4.9 mmol/L (3.5-5.1)
[2021-03-26] MEDS: METOPROLOL TARTRATE 5 MG/5 ML INJ IV PRN (00:47)
[2021-03-26] MEDS: INSULIN -REGULAR HUMAN 50 UNIT/0.5 ML ML SQ SCH ×4 (07:30→22:32)
[2021-03-26] MEDS: ZINC SULFATE 220 MG CAP PO SCH (07:53)
[2021-03-26] MEDS: APIXABAN 5 MG TABLET PO SCH ×2 (07:53→21:00)
[2021-03-26] MEDS: BARICITINIB 2 MG TABLET PO SCH (07:53)
[2021-03-26] MEDS: ASCORBIC ACID 500 MG TABLET PO SCH ×4 (07:53→21:00)
[2021-03-26] MEDS: THIAMINE HCL 100 MG TABLET PO SCH (07:53)
[2021-03-26] MEDS: VITAMIN D 1000 UNIT TAB PO SCH (07:53)
[2021-03-26] MEDS: METHYLPREDNISOLONE 40 MG INJ IV SCH ×2 (09:15→21:11)
--- NOTE | 2021-03-26 10:37 | P.PN ---
Date of Service: 03/23/21 Subjective Patient is really not changed. Patient's clinical symptoms have still not improved. Remains on BiPAP support. Prognosis remains poor. 03/23 Spoke with multiple family members. Decision was to proceed with do not attempt resuscitation. Patient's prognosis is poor. Remains on BiPAP support at an FiO2 of 100%. Barely maintaining his oxygen saturations in the low 90s. He appears to be tachypneic. If no improvement over the next 48-72 hr then may discuss with family regarding hospice. He does appear to be struggling for his breath at times Review of Systems 10-point ROS is otherwise unremarkable Physical Examination - Vital Signs reviewed - Physical Exam General: Patient is lethargic; opens eyes and follows some commands Respiratory: Diminished Cardiovascular: Regular rate/rhythm, Normal S1 S2, No murmurs Gastrointestinal: Normal bowel sounds, Soft and benign, Non-distended, No tenderness Musculoskeletal: No clubbing, No swelling, No tenderness Neurological: Sensation intact, Cranial nerves 3-12 intact Assessment & Plan - Problems (Diagnosis) (1) Pneumonia due to COVID-19 virus Current Visit: Yes Status: Acute (2) Hypoxemia Current Visit: Yes Status: Acute (3) STEPH (acute kidney injury) Current Visit: Yes Status: Acute - Plan Continue with current POC: 1. Continue with IV steroids; monitor inflammatory markers. 2. Continue monitoring renal function closely. Prognosis is worsening. He really is not improving. 3. Continue on BiPAP support. On FiO2 of 100%. 4. Continue monitoring renal function; nephrology consultation appreciated 5. DNAR 6. GI and DVT prophylaxis
[2021-03-26] MEDS ORDERED: NA CHLORIDE 0.9% 250 ML IV ONE (11:00)
[2021-03-26] MEDS: NA CHLORIDE 0.9% 1,000 ML IV SCH (11:25)
[2021-03-26] MEDS: GLIMEPIRIDE 2 MG TABLET PO SCH (15:40)
--- NOTE | 2021-03-26 18:43 | P.PN ---
Date of Service: 03/25/21 Subjective Patient remains lethargic. Renal function worsening. Spoke with family and they are contemplating hospice care. Will touch base with them in the morning. Review of Systems 10-point ROS is otherwise unremarkable Physical Examination - Vital Signs reviewed - Physical Exam General: Patient is lethargic; opens eyes and follows some commands Respiratory: Diminished Cardiovascular: Regular rate/rhythm, Normal S1 S2, No murmurs Gastrointestinal: Normal bowel sounds, Soft and benign, Non-distended, No tenderness Musculoskeletal: No clubbing, No swelling, No tenderness Neurological: Sensation intact, Cranial nerves 3-12 intact Assessment & Plan - Problems (Diagnosis) (1) Pneumonia due to COVID-19 virus Current Visit: Yes Status: Acute (2) Hypoxemia Current Visit: Yes Status: Acute (3) STEPH (acute kidney injury) Current Visit: Yes Status: Acute - Plan Continue with current POC: 1. Continue with IV steroids; monitor inflammatory markers. 2. Continue monitoring renal function closely. Prognosis is worsening. He really is not improving. 3. Continue on BiPAP support. On FiO2 of 100%. 4. Continue monitoring renal function; nephrology consultation appreciated 5. DNAR 6. GI and DVT prophylaxis
--- NOTE | 2021-03-26 18:46 | P.PN ---
Date of Service: 03/26/21 Subjective Spoke with family and they Wanna coming try to visit with patient. Aspirin recall nursing staff and try to make arrangements for visiting. Otherwise, no changes in clinical plan of care. Review of Systems 10-point ROS is otherwise unremarkable Physical Examination - Vital Signs reviewed - Physical Exam General: Patient is lethargic; opens eyes and follows some commands Respiratory: Diminished Cardiovascular: Regular rate/rhythm, Normal S1 S2, No murmurs Gastrointestinal: Normal bowel sounds, Soft and benign, Non-distended, No tenderness Musculoskeletal: No clubbing, No swelling, No tenderness Neurological: Sensation intact, Cranial nerves 3-12 intact Assessment & Plan - Problems (Diagnosis) (1) Pneumonia due to COVID-19 virus Current Visit: Yes Status: Acute (2) Hypoxemia Current Visit: Yes Status: Acute (3) STEPH (acute kidney injury) Current Visit: Yes Status: Acute - Plan Continue with current POC: 1. Continue with IV steroids; monitor inflammatory markers. 2. Continue monitoring renal function closely. Prognosis is worsening. He really is not improving. 3. Continue on BiPAP support. On FiO2 of 100%. 4. Continue monitoring renal function; nephrology consultation appreciated 5. DNAR 6. GI and DVT prophylaxis
[2021-03-27] MEDS: NA CHLORIDE 0.9% 1,000 ML IV SCH (00:35)
[2021-03-27 01:41] VITALS: O2SAT 88
[2021-03-27 01:42] VITALS: BP 77/49
[2021-03-27] MEDS: BARICITINIB 2 MG TABLET PO SCH (09:00)
[2021-03-27] MEDS: ZINC SULFATE 220 MG CAP PO SCH (09:00)
[2021-03-27] MEDS: APIXABAN 5 MG TABLET PO SCH (09:00)
[2021-03-27] MEDS: THIAMINE HCL 100 MG TABLET PO SCH (09:00)
[2021-03-27] MEDS: ASCORBIC ACID 500 MG TABLET PO SCH (09:00)
[2021-03-27] MEDS: VITAMIN D 1000 UNIT TAB PO SCH (09:00)
[2021-03-27] MEDS: INSULIN -REGULAR HUMAN 50 UNIT/0.5 ML ML SQ SCH (09:22)
[2021-03-27] MEDS: METHYLPREDNISOLONE 40 MG INJ IV SCH (09:25)
[2021-03-27 10:27] VITALS: TEMP 97.5
== END 2021-03-27 12:42 | disposition expired | DRG 177 ==
LOC: ER 18:26 → ERHOLD 20:48 → 4TH 03-20 19:24
PROVIDERS: ADMIT Hospitalist; ATTEND Hospitalist
PROC: 5A09357 Assistance with Respiratory Ventilation, Less than 24 Consecutive Hours, Continuous Positive Airway Pressure (ICD-10-PCS; principal; 2021-03-22)
DX: U07.1 COVID-19 (principal); J12.82 Pneumonia due to coronavirus disease 2019; J96.01 Acute respiratory failure with hypoxia; N17.0 Acute kidney failure with tubular necrosis; I12.9 Hypertensive chronic kidney disease with stage 1 through stage 4 chronic kidney disease, or unspecified chronic kidney disease; E11.22 Type 2 diabetes mellitus with diabetic chronic kidney disease; E11.65 Type 2 diabetes mellitus with hyperglycemia; N18.30 Chronic kidney disease, stage 3 unspecified; D89.839 Cytokine release syndrome, grade unspecified; E11.649 Type 2 diabetes mellitus with hypoglycemia without coma; G30.9 Alzheimer's disease, unspecified; F02.80 Dementia in other diseases classified elsewhere, unspecified severity, without behavioral disturbance, psychotic disturbance, mood disturbance, and anxiety; Z91.19 Patient's noncompliance with other medical treatment and regimen; Z66 Do not resuscitate
CPT/HCPCS: 0240U; 36415; 71045; 76770; 80048; 80053; 80061; 80076; 81003; 82550; 82728; 82947; 83036; 83735; 83880; 84145; 84439; 84443; 84484; 84550; 85025; 85379; 85610; 86140; 87040; 93005; 93306; 94003; 94660; 94760; 99285; J1630; J1650; J2543; J2920; J2930; J3010; J7030; J7050; J7060